=== PATIENT | female | born 1960 | race Caucasian/White ===

== ENCOUNTER 2021-01-01 08:42 | Outpatient (REF) | payer MEDICARE, MEDICAID, SELFPAY ==
[2021-01-01 09:21] LABS: MANUAL DIFF FLAG NO
[2021-01-01 09:26] LABS: Hematocrit 51.3 % (37-47); Hemoglobin 17.8 g/dl (12.0-16.0); Imm Gran Abs Auto 0.01 X10*3/uL (0.00-0.03); Imm Gran Pct Auto 0.1 % (0.0-0.4); Lymphocytes Absolute Auto 3.4 X10*3/uL (1.2-4.9); Lymphocytes Percent Auto 47.4 % (20-40); Mean Corpuscular HGB Conc 34.7 g/dl (31.0-35.0); Mean Corpuscular Hemoglobin 34.7 pg (27.0-33.0); Mean Platelet Volume 9.4 fL (9.4-12.3); Monocytes Absolute Auto 0.6 X10*3/uL (0.1-1.2); Monocytes Percent Auto 8.1 % (2-11); Neutrophils Absolute Auto 3.2 X10*3/uL (2.0-8.3); Neutrophils Percent Auto 44.4 % (45-73); Platelet Count 261 X10*3/uL (160-400); Red Blood Count 5.13 X10*6/uL (4.20-5.50); Red Cell Distribution Width 11.2 % (11.0-16.0); White Blood Count 7.2 X10*3/uL (4.8-10.8)
[2021-01-01 09:47] LABS: Alanine Aminotransferase 14 U/L (0-31); Alkaline Phosphatase 48 U/L (39-117); Anion Gap 18 (12-20); Aspartate Amino Transferase 16 U/L (5-31); Bilirubin Total 0.8 mg/dL (0.0-1.0); Blood Urea Nitrogen 10 mg/dL (9-16); Calcium 10.2 mg/dL (8.4-10.2); Carbon Dioxide 26 mmol/L (22-29); Chloride 99 mmol/L (96-108); Cholesterol 398 mg/dL; Estimated Glomerular Filt Rate > 60; Glucose Fasting 107 mg/dL (60-99); HDL Cholesterol 53 mg/dL; LDL Cholesterol Calculated 282 mg/dl; Potassium 4.9 mmol/L (3.3-5.1); Sodium 138 mmol/L (135-145); Triglycerides 319 mg/dL
[2021-01-01 10:11] LABS: Thyroid Stimulating Hormone 2.15 uIU/mL (0.32-4.0)
== END 2021-01-01 08:43 | disposition home or self-care (01) ==
LOC: HO.LAB 08:42
PROVIDERS: PCP Internal Medicine; Visit Provider Internal Medicine
DX: Z00.00 Encounter for general adult medical examination without abnormal findings (principal); E03.9 Hypothyroidism, unspecified; E11.9 Type 2 diabetes mellitus without complications
CPT/HCPCS: 36415; 80053; 80061; 84443; 85025

== ENCOUNTER 2021-03-20 14:19 | Emergency (ER) | payer MEDICARE, MEDICAID, SELFPAY ==
--- NOTE | 2021-03-20 | ECG_ITS ---
Test Reason : ELEVATED BP Blood Pressure : / mmHG Vent. Rate : 126 BPM Atrial Rate : 126 BPM P-R Int : 158 ms QRS Dur : 072 ms QT Int : 298 ms P-R-T Axes : 066 -06 064 degrees QTc Int : 431 ms Sinus tachycardia Possible Left atrial enlargement Left axis deviation Nonspecific ST abnormality Lateral leads Abnormal ECG Nonspecific ST abnormality is new Heart rate has increased Referred By: Generic ED Physician Electronically Signed By:DANUTA MAJOR MD
--- NOTE | ~2021-03-20 | CT_ITS ---
EXAMINATION: CT HEAD WITHOUT CONTRAST CLINICAL INFORMATION: Headache. COMPARISON: CT head May 04, 2013 TECHNIQUE: Contiguous axial imaging was performed from the skull base to vertex without intravenous administration of contrast. Coronal and sagittal reformatted images are performed at CT scanner This CT examination was performed using dose optimization techniques as appropriate, variously including the following: *Automated exposure control *Adjustment of mA and/or kV according to patient size (this includes techniques or standardized protocols for targeted exams where dose is matched to indication/reason for exam; i.e. extremities or head) *Use of iterative reconstruction technique DLP: 638 mGy-cm FINDINGS: Status post left frontal craniotomy. Embolization material at the right skull base causes streak artifact. There is no evidence of acute intracranial hemorrhage or territorial infarction. No abnormal mass effect or midline shift is seen. [place] to white matter differentiation is well preserved. No extra-axial fluid collections are identified. The ventricles are normal in size. There is no abnormal attenuation within the brain parenchyma. The osseous structures and soft tissues are normal. Scattered mucosal thickening in the ethmoid sinuses bilateral. The mastoid air cells and middle ear cavities are normally aerated. CT/CT head/brain wo con IMPRESSION: No acute intracranial pathology. Embolization material the right skull base causing streak artifact. Status post left frontal craniotomy.
[2021-03-20 14:31] VITALS: BP 195/108; PULSE 130; RESP 18; TEMP 37.4; BMI 27.8
[2021-03-20 17:04] VITALS: BP 191/118; PULSE 117
--- NOTE | 2021-03-20 17:04 | PC.NURSE ---
Pt has been sitting quietly in the waiting area. No new complaints. Continues to have a headache. BP reassessed with little change. Pt instructed to alert this RN if she should have any new symptoms. EKG was obtained after initial triage assessment.
[2021-03-20 17:12] VITALS: BP 194/112; PULSE 116; RESP 22; TEMP 36.5; O2SAT 95
--- NOTE | 2021-03-20 17:40 | ED.GENADULT ---
HPI - General Adult General Chief complaint: General Medical Stated complaint: hbp Time Seen by Provider: 03/20/21 17:26 Source: patient Mode of arrival: ambulatory Limitations: no limitations History of Present Illness HPI narrative: elevated BP she went to the substance abuse clinic and BP was elevated sent here for eval,no CP,no SOB ,no fever,pt states that BP has been elevated also by [facility] Onset (ago): week(s) Location: head Quality: aching Pain Consistency: intermittent Relieving factors: none Exacerbating factors: none Related Data Home Medications Medication Instructions Recorded Confirmed buprenorphine 8 mg-naloxone 2 mg 3 tab SUBLINGUAL DAILY 11/12/20 11/12/20 sublingual tablet sofosbuvir 400 mg-velpatasvir 100 1 tab PO DAILY 11/12/20 11/12/20 mg tablet Previous Rx's Medication Instructions Recorded clonazepam 0.5 mg tablet 0.5 mg PO BID #60 tab 11/02/20 clonidine HCl 0.1 mg tablet 0.1 mg PO BID #60 tab 03/12/21 amlodipine 5 mg tablet (Norvasc) 5 mg PO DAILY #10 tab 03/20/21 Allergies Allergy/AdvReac Type Severity Reaction Status Date / Time No Known Allergies Allergy Mild NOT Verified 03/20/21 14:30 APPLICABLE Review of Systems Review of Systems: Yes all other systems are reviewed and are negative Constitutional: Constitutional: Reports no additional constitutional complaints Eyes: Eyes: Reports no additional eye complaints ENT: Reports system reviewed and no additional complaints, except as documented Cardiovascular: Cardiovascular: Denies chest pain and Denies chest pain at rest Respiratory: Respiratory: Reports no additional respiratory complaints Musculoskeletal: Musculoskeletal: Reports no additional musculoskeletal complaints Psychiatric: Psychiatric: Reports no additional psychiatric complaints [facility] Past Medical History Medical History Hepatitis C Substance abuse Surgical History History of section History of fusion of cervical spine History of surgery History of umbilical hernia repair Family History Family History Father No problems noted. Mother Breast cancer Family/Other Breast cancer CAD (coronary artery disease) Dementia Social History Social History Housing: Apartment Alcohol intake: unknown Patient Tobacco Use Status: Current everyday Tobacco user Cigarettes Per Day: 10 Second Hand Smoke Exposure: No Use of substances other than those prescribed or required for medical reasons: No Advance Directives: No Advance Directives Information Provided: No Current occupational status: unemployed Physical Exam Vital Signs: Vital Signs: Last Vital Signs Temp 97.7 F 03/20/21 17:12 Pulse 100 03/20/21 18:21 Resp 20 03/20/21 18:21 BP 164/95 H 03/20/21 18:21 Pulse Ox 93 03/20/21 18:21 Body Mass Index 27.8 Const: General: cooperative Nutritional Appearance: average body habitus Orientation/consciousness: patient oriented x3 Limitations: no limitations HENMT: Head: Yes normal to inspection Face and sinus: Yes normal facial exam Mouth: Normal oral and palatal mucosa present Eyes: General: appearance normal, both eyes and all related structures Alignment and Position: alignment normal Conjunctivae: conjunctivae normal Sclerae: sclerae normal Corneas: corneas normal Pupils: Pupils normal by confrontation EOM: EOMs intact bilaterally Neck: Neck: Yes normal visual inspection, Yes full ROM and Yes no lymphadenopathy Chest: Chest palpation & inspection: normal inspection of the chest Breast/axilla palpation: normal palpation of the breasts Resp: Effort & Inspection: normal respiratory effort and able to speak in complete sentences Auscultation: clear to auscultation bilaterally Cardio: Jugular venous distension: no JVD Rate: regular rate Rhythm: regular rhythm Heart sounds: S1 normal heart sound present and S2 normal heart sound present GI: Inspection: Yes normal to inspection Palpation (GI): Soft to palpation, not firm, nontender and no guarding Percussion: Yes normal to percussion : General: Yes no CVA tenderness Back/Spine/Pelvis: Back: no CVA tenderness Neuro: General: patient oriented x3 Course Course Course Narrative: she is feeling better,BP better I will start her on norvasc 5 mg daily ,I will give her #10 pill till she see PCP Medical Decision Making Imaging Data CT scan - head: Radiologist's impression: HEAD CT NO ACUTE DISEASE ECG Data Attestation: I personally reviewed and interpreted this ECG as follows: Pacemaker model: Sinus tach 126 no ischemic changes Discharge Plan Discharge Clinical Impression: Hypertension, uncontrolled Patient Disposition: Home, Self-Care Instructions: Hypertension (ED) Additional Instructions: we are starting you on norvasc 5 mg for hypertension will give you 10 days supply till you see your PCP Prescriptions: New amlodipine [Norvasc] 5 mg tablet 5 mg PO DAILY Qty: 10 RF: 0 No Action clonazepam 0.5 mg tablet 0.5 mg PO BID Qty: 60 RF: 5 clonidine HCl 0.1 mg tablet 0.1 mg PO BID Qty: 60 RF: 3 buprenorphine-naloxone 8-2 mg tablet, sublingual 3 tab sublingual DAILY RF: 0 sofosbuvir-velpatasvir 400-100 mg tablet 1 tab PO DAILY RF: 0 Referrals: Winston Harrison MD [Primary Care Provider] - 2 days
[2021-03-20 17:44] VITALS: BP 154/86; PULSE 103; RESP 18; O2SAT 92
[2021-03-20] MEDS: LORazepam 1 MG TABLET PO (17:45)
[2021-03-20] MEDS: amLODIPine Besylate 5 MG TABLET PO (17:45)
[2021-03-20 18:21] VITALS: BP 164/95; PULSE 100; RESP 20; O2SAT 93
== END 2021-03-20 19:02 | disposition home or self-care (01) ==
PROVIDERS: Emergency Provider Emergency Medicine; PCP Internal Medicine
DX: I10 Essential (primary) hypertension (principal)
CPT/HCPCS: 70450; 93005; 99284

== ENCOUNTER 2022-01-07 10:34 | Outpatient (REF) | payer MEDICARE, MEDICAID, SELFPAY ==
--- NOTE | ~2022-01-07 | XR_ITS ---
EXAMINATION: XR RIBS, LEFT CLINICAL INFORMATION: Contusion of left frontal wall COMPARISON: None TECHNIQUE: 3 views of the left ribs were obtained. FINDINGS: The lungs are and expanded and clear of acute pneumonic process. There is mild left apical pleural thickening. The heart size and pulmonary vascularity is normal. Multiple views of left ribs reveal no visible acute fracture or bony abnormality. The soft tissues are normal. XR/XR ribs LT min 3V w CXR1V IMPRESSION: Unremarkable chest and left rib exam.
== END 2022-01-07 10:35 | disposition home or self-care (01) ==
LOC: HO.XRAY 10:34
PROVIDERS: Absent Provider Internal Medicine; PCP Internal Medicine; Visit Provider Internal Medicine
DX: S20.219A Contusion of unspecified front wall of thorax, initial encounter (principal); X58.XXXA Exposure to other specified factors, initial encounter; Y93.9 Activity, unspecified; Y92.9 Unspecified place or not applicable; Y99.9 Unspecified external cause status
CPT/HCPCS: 71101

== ENCOUNTER 2022-09-06 15:22 | Emergency (ER) | payer MEDICARE, MEDICAID, SELFPAY ==
--- NOTE | ~2022-09-06 | CT_ITS ---
EXAMINATION: CT HEAD WITHOUT CONTRAST CLINICAL INFORMATION: Headache, numbness, tingling COMPARISON: 03/20/2021 TECHNIQUE: Contiguous axial imaging was performed from the skull base to vertex without intravenous administration of contrast. This CT examination was performed using dose optimization techniques as appropriate, variously including the following: *Automated exposure control *Adjustment of mA and/or kV according to patient size (this includes techniques or standardized protocols for targeted exams where dose is matched to indication/reason for exam; i.e. extremities or head) *Use of iterative reconstruction technique DLP: 612 mGy-cm FINDINGS: There is no midline shift. There is no mass effect. There is no hemorrhage. Artifact created by hardware in the right sphenoid region limits evaluation in the region. The visualized fountain-white matter is comparable to previous. There is no evidence for fracture on the bone windows. Partially visualized sinuses show some mild sinus disease in the ethmoids. CT/CT head/brain wo IV con IMPRESSION: Negative acute noncontrast CT the brain with some limitation from hardware creating artifact.
--- NOTE | ~2022-09-06 | XR_ITS ---
EXAMINATION: XR CHEST CLINICAL INFORMATION: hypertension, numbness, tingling, pain COMPARISON: Chest x-ray 09/10/2014 TECHNIQUE: 2 views of the chest were obtained. FINDINGS: Lung volume low causing mild prominence of bronchovascular markings. No focal consolidation. No pleural effusion or pneumothorax. Cardiac mediastinal contours are normal. Heart size normal. Orthopedic hardware in cervical spine. XR/XR chest 2V IMPRESSION: Low lung volume. No acute abnormality of the chest.
[2022-09-06 15:27] VITALS: BP 172/96; BP 196/98; PULSE 102; PULSE 104; RESP 16; TEMP 37.2; O2SAT 93; BMI 30.4
[2022-09-06 15:30] VITALS: RESP 20
--- NOTE | 2022-09-06 15:54 | ECG_ITS ---
Test Reason : PALPITATIONS Blood Pressure : / mmHG Vent. Rate : 098 BPM Atrial Rate : 098 BPM P-R Int : 174 ms QRS Dur : 076 ms QT Int : 364 ms P-R-T Axes : 062 -02 028 degrees QTc Int : 464 ms Normal sinus rhythm Possible Left atrial enlargement Borderline ECG When compared with ECG of 20-MAR-2021 14:47, No significant change was found Referred By: Paulina Whitley Electronically Signed By:GEMA ENCARNACION MD
--- NOTE | 2022-09-06 15:54 | ED.GENADULT ---
HPI - General Adult General Chief complaint: General Medical Stated complaint: hypertension Time Seen by Provider: 09/06/22 15:53 Source: patient and EMS Mode of arrival: EMS Limitations: no limitations History of Present Illness HPI narrative: Patient is a 62 year old assigned female at with a history of HTN and COPD presenting to the emergency department today with neck pain that radiates into her extremities. Patient states that her neck has been bothering her some and it radiates into her head and her extremities. Patient states that the pain is worse with movement. Patient denies any dizziness, lightheadedness, abdominal pain, nausea, vomiting, fever, chills, blurry vision, double vision, loss of vision, chest pain, difficulty breathing, shortness of breath, back pain, night sweats, pain with urination, increased urinary frequency, increased urinary urgency, blood in her urine or stool, syncope or a near syncopal episode, recent trauma or falls, bowel incontinence, bladder incontinence, bowel retention, bladder retention, or any other complaints at this time. Onset (ago): day(s) (4) Location: neck Severity: mild Severity scale (1-10): 3 Quality: aching and dull Pain Consistency: intermittent Relieving factors: none Exacerbating factors: movement Associated symptoms: denies other symptoms Treatments prior to arrival: none Related Data Home Medications Medication Instructions Recorded Confirmed buprenorphine 8 mg-naloxone 2 mg 3 tab sublingual DAILY 11/12/20 06/19/21 sublingual tablet Previous Rx's Medication Instructions Recorded blood pressure monitor #1 ea 04/15/21 hydroxyzine HCl 10 mg tablet 10 mg PO BID 10 days #20 tabs 04/17/21 clonidine HCl 0.1 mg tablet 0.1 mg PO BID #60 tabs 11/28/21 meloxicam 15 mg tablet 15 mg PO DAILY #14 tabs 01/25/22 clonazepam 0.5 mg tablet 0.5 mg PO BID #60 tabs 03/24/22 amlodipine 5 mg tablet (Norvasc) 5 mg PO DAILY #90 tabs 06/23/22 atorvastatin 20 mg tablet 20 mg PO DAILY #90 tabs 07/13/22 cyclobenzaprine 5 mg tablet 5 mg PO TID PRN muscle spasm 7 09/06/22 days #21 tabs Allergies Allergy/AdvReac Type Severity Reaction Status Date / Time No Known Allergies Allergy Mild NOT Verified 01/07/22 09:58 APPLICABLE Review of Systems Constitutional: Constitutional: Reports no additional constitutional complaints, Denies chills, Denies fever(s) and Denies night sweats Eyes: Eyes: Reports no additional eye complaints, Denies blurry vision, Denies change in vision, Denies diplopia, Denies eye discharge, Denies loss of vision and Denies eye pain ENT: Denies dizziness and Reports neck pain Cardiovascular: Cardiovascular: Reports no additional cardiovascular complaints, Denies chest pain, Denies lightheadedness, Denies Loss of Consciousness and Denies dyspnea Respiratory: Respiratory: Reports no additional respiratory complaints and Denies dyspnea Gastrointestinal: Gastrointestinal: Reports no additional gastrointestinal complaints, Denies abdominal pain, Denies melena, Denies hematochezia, Denies change in bowel habits and Denies change in stool character Genitourinary: Genitourinary: Denies hematuria, Denies urinary frequency, Denies dysuria, Denies urinary incontinence, Denies urinary hesitancy and Denies urinary urgency Musculoskeletal: Musculoskeletal: Reports no additional musculoskeletal complaints, Reports neck pain, Denies numbness and Denies tingling Neurologic: Denies dizziness, Denies loss of vision, Denies numbness and Denies tingling Psychiatric: Psychiatric: Reports no additional psychiatric complaints Endocrine: Endocrine: Reports no additional endocrine complaints Hematologic/Lymphatic: Hematologic/Lymphatic: Reports no additional hematologic/lymphatic complaints Allergic/Immunologic: Allergic/Immunologic: Reports no additional allergic/immunologic complaints [facility] Past Medical History Attestation statement: The following information was validated with the patient. Source: old records reviewed and nursing notes reviewed Medical History Hepatitis C Hyperlipidemia Hypertension Substance abuse Surgical History History of section History of fusion of cervical spine History of surgery History of umbilical hernia repair Family History Family History Father No problems noted. Mother Breast cancer Family/Other Breast cancer CAD (coronary artery disease) Dementia Mental health disorder Social History Social History Housing: Apartment Alcohol intake: never Patient Tobacco Use Status: Current everyday Tobacco user Tobacco use type: Cigarette Cigarettes Per Day: 10 Smoked in Last 30 Days: Yes e-Cigarette/Vaping Use: Never Used Second Hand Smoke Exposure: No Use of substances other than those prescribed or required for medical reasons: No Advance Directives: No Advance Directives Information Provided: No service: No Current occupational status: unemployed Cognitive needs: No Hearing needs: No Vision needs: No Physical Exam ED Vital Signs: Vital Signs - 24 hr 09/06/22 15:27 09/06/22 15:30 09/06/22 18:09 Temperature 99.0 F Pulse Rate 104 H 95 Respiratory Rate 16 20 16 Blood Pressure 172/96 H 130/78 Pulse Oximetry 93 96 Oxygen Delivery Method Room Air Nasal Cannula Oxygen Flow Rate 2 BMI result Body Mass Index 30.4 Const General: cooperative, no acute distress, alert and awake Nutritional Appearance: well nourished Orientation/consciousness: patient oriented x3 Limitations: no limitations HENMT Head: Yes normal to inspection and Yes atraumatic Ears: hearing grossly normal bilaterally and external ears normal General nose exam: Normal external nose present, no nasal discharge noted and no epistaxis Face and sinus: Yes normal facial exam, No abrasion and No laceration Mouth: Normal oral and palatal mucosa present, no drooling and no muffled voice Eyes General: appearance normal, both eyes and all related structures Periorbital: periorbital findings normal Eyelids: Yes eyelids normal Conjunctivae: conjunctivae normal Pupils: Equal, round and reactive pupils present EOM: EOMs intact bilaterally Neck Neck: Yes normal visual inspection, Yes full ROM and Yes no lymphadenopathy Chest Chest palpation & inspection: normal inspection of the chest Resp Effort & Inspection: normal respiratory effort and able to speak in complete sentences GI Inspection: Yes normal to inspection General: Yes no CVA tenderness Back/Spine/Pelvis Back: no CVA tenderness Cervical Spine: normal cervical lordosis and cervical ROM normal Thoracic/Lumbar Spine: thoracic and lumbar spine normal to inspection and thoraco-lumbar ROM normal Pelvis: no pain with anterior-posterior compression Neuro General: patient oriented x3 and moves all extremities Cranial nerves: Yes Equal, round and reactive pupils present Cognition (Neuro): normal cognition Motor exam (neuro): 5/5 motor strength present throughout Sensory Exam: Normal double simultaneous stimulation for sensation Coordination: [id number] test normal Extrem General: Yes normal to inspection, Yes full ROM and Yes capillary refill normal Psych Appearance: grossly normal Mental Status: mental status grossly normal Affect: normal affect Attitude: cooperative Thought process: Normal thought process present Thought content: Normal thought content present Insight: Good insight present (Psych) Medications Administered Discontinued Medications Generic Name Dose Route Start Last Admin Trade Name Sandra PRN Reason Stop Dose Admin Cyclobenzaprine HCl 5 mg 09/06/22 18:05 09/06/22 18:17 Cyclobenzaprine Hcl 5 Mg Tablet PO 09/06/22 18:06 5 mg ONCE ONE Administration Sodium Chloride 1,000 mls @ 999 mls/hr 09/06/22 16:00 09/06/22 19:01 Ns IV 09/06/22 17:00 Infused .Q1H1M SUBHASH Infusion Lorazepam 1 mg 09/06/22 15:58 09/06/22 16:38 Lorazepam 2 Mg/Ml Vial IVPUSH 09/06/22 15:59 1 mg ONCE ONE Administration Medical Decision Making Medical Decision Making [facility] Narrative: Patient is a 62 year old assigned female at with a history of COPD and HTN presenting to the emergency department today with neck pain. Patient's physical exam was unremarkable. Patient's blood work was unremarkable. Patient's EKG was unremarkable. Patient's chest x-ray and head CT showed no acute process. I explained my physical exam findings as well as all test results to the patient. I answered all questions asked by the patient. Patient requested something for anxiety, received ativan and felt much better. I stressed the importance of the patient taking her medication as prescribed. I stressed the importance of the patient following up with her primary care provider. I stressed the importance of the patient returning to the emergency department immediately if her symptoms were to worsen or if she were to develop any dizziness, shortness of breath, difficulty breathing, chest pain, blurry vision, loss of vision, nausea, vomiting, abdominal pain, fever, chills, back pain, or any other complaints. Patient verbalized agreement and understanding with this treatment plan and discharge. Differential Diagnosis Differential Diagnoses: The differential diagnosis associated with the presentation includes neck pain, anxiety Lab Data [facility] Lab Attestation statement: I reviewed the patient's lab results. 09/06/22 16:23 09/06/22 16:37 Labs: Lab Results 09/06/22 09/06/22 09/06/22 Range/Units 16:23 16:23 16:23 WBC 6.4 (4.8-10.8) X10*3/uL RBC 5.22 (4.20-5.50) X10*6/uL Hgb 17.6 H (12.0-16.0) g/dl Hct 50.6 H (37.0-47.0) % MCV 96.9 (80.0-98.0) fL MCH 33.7 H (27.0-33.0) pg MCHC 34.8 (31.0-35.0) g/dl RDW 11.2 (11.0-16.0) % Plt Count TNP MPV 10.5 (9.4-12.3) fL Immature Gran % (Auto) 0.2 (0.0-0.4) % Neut % (Auto) 55.2 (45-73) % Lymph % (Auto) 38.1 (20-40) % Hudson % (Auto) 6.3 (2-11) % Eos % (Auto) 0.2 (0-4) % Baso % (Auto) 0.0 (0-2) % Lymph # (Auto) 2.4 (1.2-4.9) X10*3/uL Hudson # (Auto) 0.4 (0.1-1.2) X10*3/uL Eos # (Auto) 0.0 (0.0-0.4) X10*3/uL Baso # (Auto) 0.0 (0.0-0.2) X10*3/uL Abs Immat Gran (auto) 0.01 (0.00-0.03) X10*3/uL Absolute Neuts (auto) 3.5 (2.0-8.3) x10*3/uL Absolute Nucleated RBC 0.000 (0.0-0.012) X10*3/uL Nucleated RBC % (auto) 0.0 (0.0-0.2) /100WBC Smear Tech's Comments VERIFIED Sodium (135-145) mmol/L Potassium (3.3-5.1) mmol/L Chloride (96-108) mmol/L Carbon Dioxide (22-29) mmol/L Anion Gap (12-20) BUN (9-16) mg/dL Creatinine (0.5-1.4) mg/dL Estim Creat Clear Calc Estimated GFR Random Glucose (60-115) mg/dL Calcium (8.4-10.2) mg/dL Magnesium (1.6-2.6) mg/dL Total Bilirubin (0.0-1.0) mg/dL AST (5-31) U/L ALT (0-31) U/L Alkaline Phosphatase (39-117) U/L Troponin I High Sens < 2.7 (<3.5-17.0) ng/L Total Protein (6.5-8.0) g/dL Albumin (3.5-5.0) g/dL COVID-19 ([facility]) Negative (Negative) COVID-19 Clin Com See Note 09/06/22 Range/Units 16:37 WBC (4.8-10.8) X10*3/uL RBC (4.20-5.50) X10*6/uL Hgb (12.0-16.0) g/dl Hct (37.0-47.0) % MCV (80.0-98.0) fL MCH (27.0-33.0) pg MCHC (31.0-35.0) g/dl RDW (11.0-16.0) % Plt Count MPV (9.4-12.3) fL Immature Gran % (Auto) (0.0-0.4) % Neut % (Auto) (45-73) % Lymph % (Auto) (20-40) % Hudson % (Auto) (2-11) % Eos % (Auto) (0-4) % Baso % (Auto) (0-2) % Lymph # (Auto) (1.2-4.9) X10*3/uL Hudson # (Auto) (0.1-1.2) X10*3/uL Eos # (Auto) (0.0-0.4) X10*3/uL Baso # (Auto) (0.0-0.2) X10*3/uL Abs Immat Gran (auto) (0.00-0.03) X10*3/uL Absolute Neuts (auto) (2.0-8.3) x10*3/uL Absolute Nucleated RBC (0.0-0.012) X10*3/uL Nucleated RBC % (auto) (0.0-0.2) /100WBC Smear Tech's Comments Sodium 139 (135-145) mmol/L Potassium 3.8 D (3.3-5.1) mmol/L Chloride 103 (96-108) mmol/L Carbon Dioxide 21 L (22-29) mmol/L Anion Gap 19 (12-20) BUN 9 (9-16) mg/dL Creatinine 0.75 (0.5-1.4) mg/dL Estim Creat Clear Calc 81.9 Estimated GFR > 60 Random Glucose 104 (60-115) mg/dL Calcium 9.4 D (8.4-10.2) mg/dL Magnesium 2.1 (1.6-2.6) mg/dL Total Bilirubin 0.6 (0.0-1.0) mg/dL AST 18 (5-31) U/L ALT 15 (0-31) U/L Alkaline Phosphatase 55 (39-117) U/L Troponin I High Sens (<3.5-17.0) ng/L Total Protein 7.9 (6.5-8.0) g/dL Albumin 4.8 (3.5-5.0) g/dL COVID-19 ([facility]) (Negative) COVID-19 Clin Com Independent Interpretation I performed an independent interpretation of an: EKG Interpretation: Vent. Rate: 098 BPM ? ? Atrial Rate: 098 BPM P-R Int: 174 ms? QRS Dur: 076 ms QT Int: 364 ms ? ? ? P-R-T Axes: 062 -02 028 degrees QTc Int: 464 ms ? Normal sinus rhythm Possible Left atrial enlargement Borderline ECG When compared with ECG of 20-MAR-2021 14:47, No significant change was found DD/ 1603 Radiology Impression Radiologist Impression: My interpretation is in agreement with the radiologist's impression of these imaging studies. EXAMINATION: XR CHEST CLINICAL INFORMATION: hypertension, numbness, tingling, pain COMPARISON: Chest x-ray 09/10/2014 TECHNIQUE: 2 views of the chest were obtained. FINDINGS: Lung volume low causing mild prominence of bronchovascular markings. No focal consolidation. No pleural effusion or pneumothorax. Cardiac mediastinal contours are normal. Heart size normal. Orthopedic hardware in cervical spine. XR/XR chest 2V IMPRESSION: Low lung volume. No acute abnormality of the chest. Dictated By: Jose Luis Nguyễn MD Signed By: Electronically signed by Jose Luis Nguyễn MD 09/06/22 1744 EXAMINATION: CT HEAD WITHOUT CONTRAST CLINICAL INFORMATION: Headache, numbness, tingling? COMPARISON: 03/20/2021? TECHNIQUE: Contiguous axial imaging was performed from the skull base to vertex without intravenous administration of contrast. This CT examination was performed using dose optimization techniques as appropriate, variously including the following: *Automated exposure control *Adjustment of mA and/or kV according to patient size (this includes techniques or standardized protocols for targeted exams where dose is matched to indication/reason for exam; i.e. extremities or head) *Use of iterative reconstruction technique DLP: 612 mGy-cm FINDINGS: There is no midline shift. There is no mass effect. There is no hemorrhage. Artifact created by hardware in the right sphenoid region limits evaluation in the region. The visualized fountain-white matter is comparable to previous. There is no evidence for fracture on the bone windows. Partially visualized sinuses show some mild sinus disease in the ethmoids. CT/CT head/brain wo IV con IMPRESSION: Negative acute noncontrast CT the brain with some limitation from hardware creating artifact. Dictated By: Santos Diggs MD Signed By: Electronically signed by Santos Diggs MD 09/06/22 2441 Discharge Plan Discharge Clinical Impression: Muscle spasm Patient Disposition: Home, Self-Care Instructions: Muscle Spasm (ED) Additional Instructions: Follow up with your primary care provider. Return to the emergency department immediately if your symptoms worsen or if you develop any dizziness, shortness of breath, difficulty breathing, chest pain, blurry vision, loss of vision, nausea, vomiting, abdominal pain, fever, chills, back pain, or any other complaints. Prescriptions: New cyclobenzaprine 5 mg tablet 5 mg PO TID PRN (Reason: muscle spasm) 7 Days Qty: 21 0RF No Action (DME) blood pressure monitor Kit See Rx Instructions .Route Qty: 1 0RF Rx Instructions: To check blood pressure daily hydroxyzine HCl 10 mg tablet 10 mg PO BID 10 Days Qty: 20 0RF clonidine HCl 0.1 mg tablet 0.1 mg PO BID Qty: 60 7RF meloxicam 15 mg tablet 15 mg PO DAILY Qty: 14 0RF clonazepam 0.5 mg tablet 0.5 mg PO BID Qty: 60 5RF amlodipine [Norvasc] 5 mg tablet 5 mg PO DAILY Qty: 90 8RF atorvastatin 20 mg tablet 20 mg PO DAILY Qty: 90 2RF buprenorphine-naloxone 8-2 mg tablet, sublingual 3 tab sublingual DAILY Referrals: [facility] Family Medicine [Provider Group] (Call to establish and follow up with a primary care provider. If you already have a primary care provider, please follow up with them.) [facility] Primary [facility] [Provider Group] (Call to establish and follow up with a primary care provider. If you already have a primary care provider, please follow up with them.) [facility] Primary [facility] [Provider Group] (Call to establish and follow up with a primary care provider. If you already have a primary care provider, please follow up with them.) Interventions: ED Discharge Assessment Last Done: 09/06/22 18:59 Discharge Date/Time: 09/06/22 19:00 Print Language: Korean
[2022-09-06 16:34] LABS: Eosinophils Percent Auto 0.2 % (0-4); Hematocrit 50.6 % (37.0-47.0); Hemoglobin 17.6 g/dl (12.0-16.0); Imm Gran Abs Auto 0.01 X10*3/uL (0.00-0.03); Imm Gran Pct Auto 0.2 % (0.0-0.4); Lymphocytes Absolute Auto 2.4 X10*3/uL (1.2-4.9); Lymphocytes Percent Auto 38.1 % (20-40); MANUAL DIFF FLAG SCAN; Mean Corpuscular HGB Conc 34.8 g/dl (31.0-35.0); Mean Corpuscular Hemoglobin 33.7 pg (27.0-33.0); Mean Corpuscular Volume 96.9 fL (80.0-98.0); Mean Platelet Volume 10.5 fL (9.4-12.3); Monocytes Absolute Auto 0.4 X10*3/uL (0.1-1.2); Monocytes Percent Auto 6.3 % (2-11); Neutrophils Absolute Auto 3.5 x10*3/uL (2.0-8.3); Neutrophils Percent Auto 55.2 % (45-73); PLT CLUMP 1; Red Blood Count 5.22 X10*6/uL (4.20-5.50); Red Cell Distribution Width 11.2 % (11.0-16.0); SCAN SMEAR FLAG 1
[2022-09-06 16:35] LABS: White Blood Count 6.4 X10*3/uL (4.8-10.8)
[2022-09-06] MEDS: LORazepam 2 MG/ML VIAL 1 MG IVPUSH (16:38)
[2022-09-06] MEDS: 0.9 % Sodium Chloride 1,000 ML 999 ML IV (16:41)
[2022-09-06 16:48] LABS: COVID-19 Test Negative (Negative); IDNOW Serial# 08D9AD1C
[2022-09-06 16:50] LABS: SLIDE REVIEW VERIFIED
[2022-09-06 16:51] LABS: Troponin-I High Sensitivity < 2.7 ng/L (<3.5-17.0)
[2022-09-06 16:59] LABS: Alanine Aminotransferase 15 U/L (0-31); Albumin Level 4.8 g/dL (3.5-5.0); Alkaline Phosphatase 55 U/L (39-117); Anion Gap 19 (12-20); Aspartate Amino Transferase 18 U/L (5-31); Bilirubin Total 0.6 mg/dL (0.0-1.0); Blood Urea Nitrogen 9 mg/dL (9-16); Calcium 9.4 mg/dL (8.4-10.2); Carbon Dioxide 21 mmol/L (22-29); Chloride 103 mmol/L (96-108); Creatinine Clr Calc Pharmacy 81.9; Estimated Glomerular Filt Rate > 60; Glucose Random 104 mg/dL (60-115); Magnesium 2.1 mg/dL (1.6-2.6); Potassium 3.8 mmol/L (3.3-5.1); Sodium 139 mmol/L (135-145); Total Protein 7.9 g/dL (6.5-8.0)
[2022-09-06 18:09] VITALS: BP 130/78; PULSE 95; RESP 16; O2SAT 96
[2022-09-06] MEDS: Cyclobenzaprine HCl 5 MG TABLET PO (18:17)
== END 2022-09-06 19:00 | disposition home or self-care (01) ==
PROVIDERS: Physician Assistant Medical; Emergency Provider Emergency Medicine
DX: M62.838 Other muscle spasm (principal); M54.2 Cervicalgia; F41.9 Anxiety disorder, unspecified; Z20.822 Contact with and (suspected) exposure to COVID-19; I10 Essential (primary) hypertension; E78.5 Hyperlipidemia, unspecified; B19.20 Unspecified viral hepatitis C without hepatic coma; F11.20 Opioid dependence, uncomplicated; F17.210 Nicotine dependence, cigarettes, uncomplicated; Z79.899 Other long term (current) drug therapy
CPT/HCPCS: 70450; 71046; 80053; 83735; 84484; 85025; 87635; 93005; 96361; 96374; 99284; 99285; J2060

== ENCOUNTER 2022-10-03 09:50 | Emergency (ER) | payer MEDICARE, MEDICAID, SELFPAY ==
[2022-10-03 09:55] VITALS: BP 163/93; PULSE 100; O2SAT 95
--- NOTE | 2022-10-03 09:55 | ED_ITS ---
HPI - General Adult General Chief complaint: Anxiety Stated complaint: HTN,palpitations per EMS Time Seen by Provider: 10/03/22 09:52 Source: patient Mode of arrival: ambulatory Limitations: no limitations History of Present Illness HPI narrative: Patient felt palpitation that made her panic and so she thought her pressure was running high. Patient took her BP meds this morning. Patient does have a history of panic attacks Onset (ago): minute(s) Severity: mild Pain Consistency: now resolved Related Data Home Medications Medication Instructions Recorded Confirmed buprenorphine 8 mg-naloxone 2 mg 3 tab sublingual DAILY 11/12/20 09/12/22 sublingual tablet Previous Rx's Medication Instructions Recorded blood pressure monitor #1 ea 04/15/21 hydroxyzine HCl 10 mg tablet 10 mg PO BID 10 days #20 tabs 04/17/21 meloxicam 15 mg tablet 15 mg PO DAILY #14 tabs 01/25/22 amlodipine 5 mg tablet (Norvasc) 5 mg PO DAILY #90 tabs 06/23/22 atorvastatin 20 mg tablet 20 mg PO DAILY #90 tabs 07/13/22 cyclobenzaprine 5 mg tablet 5 mg PO TID PRN muscle spasm 7 09/06/22 days #21 tabs clonazepam 0.5 mg tablet 0.5 mg PO BID #60 tabs 09/09/22 clonidine HCl 0.1 mg tablet 0.1 mg PO BID #60 tabs 09/09/22 albuterol sulfate 90 mcg/actuation 2 puff PO Q6H PRN bronchospasm #18 09/12/22 aerosol inhaler (ProAir HFA) grams Allergies Allergy/AdvReac Type Severity Reaction Status Date / Time No Known Allergies Allergy Mild NOT Verified 09/12/22 11:41 APPLICABLE Review of Systems Review of Systems: Yes all other systems are reviewed and are negative Cardiovascular: Comments: palpitations Psychiatric: Comments: anxiety PMFSH Past Medical History Medical History Hepatitis C Hyperlipidemia Hypertension Substance abuse Surgical History History of section History of fusion of cervical spine History of surgery History of umbilical hernia repair Family History Family History Father No problems noted. Mother Breast cancer Family/Other Breast cancer CAD (coronary artery disease) Dementia Mental health disorder Social History Social History Housing: Apartment Alcohol intake: never Patient Tobacco Use Status: Current everyday Tobacco user Tobacco use type: Cigarette Cigarettes Per Day: 10 e-Cigarette/Vaping Use: Never Used Second Hand Smoke Exposure: No Advance Directives: No service: No Current occupational status: unemployed Cognitive needs: No Hearing needs: No Vision needs: No Physical Exam ED Vital Signs: Vital Signs - 24 hr 10/03/22 09:56 Temperature 99.2 F Pulse Rate 94 Respiratory Rate 18 Blood Pressure 146/76 H Pulse Oximetry 92 Oxygen Delivery Method Room Air BMI result Body Mass Index 31.2 Const Other: female looking older than stated age, anxious Orientation/consciousness: oriented to person and patient oriented x3 Limitations: no limitations HENMT Head: Yes normal to inspection Ears: external ears normal General nose exam: Normal external nose present Mouth: Normal oral and palatal mucosa present and oropharynx normal Throat: Yes posterior oropharynx normal Eyes General: appearance normal, both eyes and all related structures Neck Neck: Yes normal visual inspection Chest Chest palpation & inspection: normal inspection of the chest Resp Auscultation: clear to auscultation bilaterally Cardio Jugular venous distension: no JVD Rate: regular rate Rhythm: regular rhythm Heart sounds: S1 normal heart sound present and S2 normal heart sound present GI Inspection: Yes normal to inspection Palpation (GI): Soft to palpation, nontender and No hepatosplenomegaly present Auscultation: normal bowel sounds General: Yes no CVA tenderness Back/Spine/Pelvis Back: no CVA tenderness Skin General skin exam: no rashes or lesions noted Neuro General: oriented to person and patient oriented x3 Cranial nerves: Yes CN's II-XII intact bilaterally Motor exam (neuro): 5/5 motor strength present throughout Extrem General: Yes normal to inspection Psych Other: anxious Course Reevaluation(s) Reevaluation #1: EKG blood work, and BP down, patient less anxious after ativan ready for dc home Time: 11:08 Medications Administered Discontinued Medications Generic Name Dose Route Start Last Admin Trade Name Freq PRN Reason Stop Dose Admin Lorazepam 1 mg 10/03/22 10:00 10/03/22 10:10 Lorazepam 2 Mg/Ml Vial IVPUSH 10/03/22 10:01 1 mg STAT STA Administration Medical Decision Making Differential Diagnosis Differential Diagnoses: The differential diagnosis associated with the presentation includes (cardiac ischemia, anxiety, unstable angina) Admission/Observation Consideration of admission/observation: Escalation of care including admission/observation considered (In a 62 yo female, smoker with strong family history admission was considered upon arrival) Lab Data MDM Lab Attestation statement: I reviewed the patient's lab results. 10/03/22 10:07 10/03/22 10:07 Labs: Lab Results 10/03/22 10/03/22 Range/Units 10:07 10:07 WBC 5.8 (4.8-10.8) X10*3/uL RBC 4.91 (4.20-5.50) X10*6/uL Hgb 16.2 H (12.0-16.0) g/dl Hct 45.9 (37.0-47.0) % MCV 93.5 (80.0-98.0) fL MCH 33.0 (27.0-33.0) pg MCHC 35.3 H (31.0-35.0) g/dl RDW 11.1 (11.0-16.0) % Plt Count 221 (160-400) X10*3/uL MPV 9.4 (9.4-12.3) fL Immature Gran % (Auto) 0.2 (0.0-0.4) % Neut % (Auto) 67.7 (45-73) % Lymph % (Auto) 26.3 (20-40) % [place] % (Auto) 5.8 (2-11) % Eos % (Auto) 0.0 (0-4) % Baso % (Auto) 0.0 (0-2) % Lymph # (Auto) 1.5 (1.2-4.9) X10*3/uL [place] # (Auto) 0.3 (0.1-1.2) X10*3/uL Eos # (Auto) 0.0 (0.0-0.4) X10*3/uL Baso # (Auto) 0.0 (0.0-0.2) X10*3/uL Abs Immat Gran (auto) 0.01 (0.00-0.03) X10*3/uL Absolute Neuts (auto) 3.9 (2.0-8.3) x10*3/uL Absolute Nucleated RBC 0.000 (0.0-0.012) X10*3/uL Nucleated RBC % (auto) 0.0 (0.0-0.2) /100WBC Troponin I High Sens < 2.7 (<3.5-17.0) ng/L Independent Interpretation I performed an independent interpretation of an: EKG (sinus, rate of 90, no st or twave changes) Independent Historian Clinical information obtained from an independent historian. History obtained from or confirmed by: EMS Chronic Conditions Patient?s care impacted by: Hypertension and Other (COPD) Discharge Plan Discharge Clinical Impression: Acute anxiety, Chest pain Patient Disposition: Home, Self-Care Instructions: Anxiety (ED) Prescriptions: No Action (DME) blood pressure monitor Kit See Rx Instructions .Route Qty: 1 0RF Rx Instructions: To check blood pressure daily hydroxyzine HCl 10 mg tablet 10 mg PO BID 10 Days Qty: 20 0RF meloxicam 15 mg tablet 15 mg PO DAILY Qty: 14 0RF amlodipine [Norvasc] 5 mg tablet 5 mg PO DAILY Qty: 90 8RF atorvastatin 20 mg tablet 20 mg PO DAILY Qty: 90 2RF clonazepam 0.5 mg tablet 0.5 mg PO BID Qty: 60 5RF clonidine HCl 0.1 mg tablet 0.1 mg PO BID Qty: 60 7RF cyclobenzaprine 5 mg tablet 5 mg PO TID PRN (Reason: muscle spasm) 7 Days Qty: 21 0RF buprenorphine-naloxone 8-2 mg tablet, sublingual 3 tab sublingual DAILY albuterol sulfate [ProAir HFA] 90 mcg/actuation HFA aerosol inhaler 2 puff PO Q6H PRN (Reason: bronchospasm) Qty: 18 8RF
[2022-10-03 09:56] VITALS: BP 146/76; PULSE 94; RESP 18; TEMP 37.3; O2SAT 92; BMI 31.2
--- NOTE | 2022-10-03 09:57 | ECG_ITS ---
Test Reason : ANXITEY Blood Pressure : / mmHG Vent. Rate : 092 BPM Atrial Rate : 092 BPM P-R Int : 180 ms QRS Dur : 074 ms QT Int : 386 ms P-R-T Axes : 063 002 035 degrees QTc Int : 477 ms Normal sinus rhythm Possible Left atrial enlargement Borderline ECG When compared with ECG of 06-SEP-2022 16:03, No significant change was found Referred By: Christopher Rojas Electronically Signed By:MIC LAYNE
[2022-10-03] MEDS: LORazepam 2 MG/ML VIAL 1 MG IVPUSH (10:10)
[2022-10-03 10:11] LABS: MANUAL DIFF FLAG NO
[2022-10-03 10:20] LABS: Hematocrit 45.9 % (37.0-47.0); Hemoglobin 16.2 g/dl (12.0-16.0); Imm Gran Abs Auto 0.01 X10*3/uL (0.00-0.03); Imm Gran Pct Auto 0.2 % (0.0-0.4); Lymphocytes Absolute Auto 1.5 X10*3/uL (1.2-4.9); Lymphocytes Percent Auto 26.3 % (20-40); Mean Corpuscular HGB Conc 35.3 g/dl (31.0-35.0); Mean Corpuscular Volume 93.5 fL (80.0-98.0); Mean Platelet Volume 9.4 fL (9.4-12.3); Monocytes Absolute Auto 0.3 X10*3/uL (0.1-1.2); Monocytes Percent Auto 5.8 % (2-11); Neutrophils Absolute Auto 3.9 x10*3/uL (2.0-8.3); Neutrophils Percent Auto 67.7 % (45-73); Platelet Count 221 X10*3/uL (160-400); Red Blood Count 4.91 X10*6/uL (4.20-5.50); Red Cell Distribution Width 11.1 % (11.0-16.0); White Blood Count 5.8 X10*3/uL (4.8-10.8)
[2022-10-03 10:51] LABS: Troponin-I High Sensitivity < 2.7 ng/L (<3.5-17.0)
[2022-10-03 11:12] LABS: Anion Gap 11 (12-20); Blood Urea Nitrogen 10 mg/dL (9-16); Calcium 9.4 mg/dL (8.4-10.2); Carbon Dioxide 28 mmol/L (22-29); Chloride 104 mmol/L (96-108); Creatinine Clr Calc Pharmacy 94.2; Estimated Glomerular Filt Rate > 60; Glucose Random 115 mg/dL (60-115); Potassium 3.9 mmol/L (3.3-5.1); Sodium 139 mmol/L (135-145)
== END 2022-10-03 11:33 | disposition home or self-care (01) ==
PROVIDERS: Emergency Provider Emergency Medicine; PCP Internal Medicine
DX: R07.9 Chest pain, unspecified (principal); F41.9 Anxiety disorder, unspecified; I10 Essential (primary) hypertension; E78.5 Hyperlipidemia, unspecified; F19.10 Other psychoactive substance abuse, uncomplicated; B19.20 Unspecified viral hepatitis C without hepatic coma; Z79.899 Other long term (current) drug therapy; Z79.02 Long term (current) use of antithrombotics/antiplatelets
CPT/HCPCS: 36415; 80048; 84484; 85025; 93005; 96374; 99283; 99284; J2060

== ENCOUNTER 2022-12-01 10:35 | Outpatient (AMB) | payer MEDICARE, MEDICAID, SELFPAY ==
--- NOTE | 2022-12-01 10:45 | MHC.PC.OV ---
Vital Signs 12/01/22 10:46 Height 5 ft 4 in Weight 179 lb BMI 30.7 BP 130/70 Blood Pressure Location Lt brachial Position Sitting Pulse 93 Pulse Source Pulse Oximeter Pulse Oximetry (%) 96 Oxygen Delivery Method Room Air Intake Visit Reasons: Med review Intake Note: Patient is here to follow up on medication review. District Court Reporter Required: No Police Pilot: Not Required per policy Accompanied by: Self / Same As Patient Allergies No Known Allergies Allergy (Mild, Verified 12/01/22 10:45) NOT APPLICABLE Tobacco use date assessed: 12/01/22 Dental Screening Dental Screen Date: 12/01/22 Did you have a dental visit in the last 12 months?: Yes Did you have a dental problem in the last 6 months where you did not have access to dental care?: No Was dental information given to patient?: Patient has dentist HPI Med review HPI Details Chronic anxiety PFSH Medical History Hepatitis C Hyperlipidemia Hypertension Substance abuse Surgical History History of section History of fusion of cervical spine History of surgery History of umbilical hernia repair Family History Father No problems noted. Mother Breast cancer Family/Other Breast cancer CAD (coronary artery disease) Dementia Mental health disorder Social History Housing: Apartment Alcohol intake: never Patient Tobacco Use Status: Current everyday Tobacco user Tobacco use type: Cigarette Cigarettes Per Day: 11 e-Cigarette/Vaping Use: Never Used Second Hand Smoke Exposure: No service: No Current occupational status: unemployed Cognitive needs: No Hearing needs: No Vision needs: No Questionnaire PHQ-9 Over the last 2 weeks, how often have you been bothered by any of the following problems? Depression Screening Interpretation: Negative Source: Developed by Drs. Jasen Ramirez, Yolanda Bourne, José Bourgeois and colleagues, with an educational saundra from [employer]. Thrive Questionnaire Date Thrive assessed: 09/12/22 Currently or been in a relationship where the following occur: no concerns reported LARRY-7 AMB Questionnaire LARRY-7 Date LARRY - 7 assessed: 09/12/22 Source: Developed by Drs. Jasen Ramirez, Yolanda Bourne, José Bourgeois and colleagues, with an educational saundra from [employer]. Review of Systems Const Denies chills, Denies headache(s) and Denies weight loss ENT Denies headache(s) Card Denies chest pain, Denies syncope, Denies irregular heart rhythm and Denies dyspnea Resp Denies chest congestion, Denies cough and Denies dyspnea GI Denies abdominal pain, Denies change in stool character, Denies nausea and Denies vomiting Musc Denies deformity and Denies joint swelling Neuro Denies syncope and Denies headache(s) Physical exam (Primary Care) BMI result Body Mass Index 30.7 Tobacco/Smoking Status: Tobacco use Status Tobacco use date assessed 09/12/22 09/12/22 11:46 Patient Tobacco Use Status Current everyday Tobacco 09/12/22 11:46 Tobacco use type Cigarette 09/12/22 11:46 e-Cigarette/Vaping Use Never Used 09/12/22 11:46 Depression Screening Interpretation: Negative Thrive Assessment: Date of Thrive Assessment Date Thrive assessed 09/12/22 09/12/22 11:46 Currently or been in a relationship where the following occur: no concerns reported Const General: cooperative, comfortable and no acute distress Resp Effort & Inspection: normal respiratory effort Auscultation: clear to auscultation bilaterally Percussion: percussion normal Cardio Jugular venous distension: no JVD Rate: regular rate Rhythm: regular rhythm GI Inspection: Yes normal to inspection Assessment and Plan Assessment & Plan (1) Panic attacks: Code(s): F41.0 - Panic disorder [episodic paroxysmal anxiety] Plan: stable; she lied to me stating she was not takingbuprenorphine; she still gets it every montn Medications: Refilled clonazepam 0.5 mg PO BID 60 tabs 5RF Coding Level of Care Code Est Pt Level 3 (96588) Diagnoses Panic attacks F41.0
[2022-12-01 10:46] VITALS: BP 130/70; PULSE 93; O2SAT 96; BMI 30.7
== END 2022-12-01 10:57 | disposition home or self-care (01) ==
PROVIDERS: PCP Internal Medicine; Visit Provider Internal Medicine
DX: F41.0 Panic disorder [episodic paroxysmal anxiety] (principal)
CPT/HCPCS: 99213

== ENCOUNTER 2023-04-30 14:29 | Outpatient (AMB) | payer MEDICARE, MEDICAID, SELFPAY ==
[2023-04-30 14:34] VITALS: BP 144/90; PULSE 103; O2SAT 93; BMI 30.4
--- NOTE | 2023-04-30 14:34 | A.OFFPC_ITS ---
Vital Signs 04/30/23 14:34 04/30/23 15:10 Height 5 ft 4 in Weight 177 lb 0.8 oz BMI 30.4 BP 144/90 H 136/80 Blood Pressure Location Lt brachial Lt brachial Position Sitting Sitting Pulse 103 H Pulse Source Pulse Oximeter Pulse Oximetry (%) 93 Oxygen Delivery Method Room Air Intake Visit Reasons: Annual Physical Feed Manager Required: No Allergies No Known Allergies Allergy (Mild, Verified 04/30/23 14:51) NOT APPLICABLE Medication List - Last Reconciled 04/30/23 by ILIANA Gonzalez albuterol sulfate 90 mcg/actuation (ProAir HFA) 2 puffs PO Q6H PRN amlodipine (Norvasc) 5 mg PO DAILY atorvastatin 20 mg PO DAILY blood pressure monitor To check blood pressure daily buprenorphine-naloxone 8-2 mg 2 tabs sublingual DAILY clonazepam 0.5 mg PO BID clonidine HCl 0.1 mg PO BID cyclobenzaprine 5 mg PO TID PRN 7 days Tobacco use date assessed: 04/30/23 Dental Screening Dental Screen Date: 04/30/23 Did you have a dental visit in the last 12 months?: No Did you have a dental problem in the last 6 months where you did not have access to dental care?: No HPI Annual Physical HPI0 Details Patient is a 62-year-old male who presents today for physical exam. Patient of Dr. Harrison. Medical history significant for substance abuse-on buprenorphine-naloxone, hypertension, hyperlipidemia, panic attacks, smoker- reports smoking 1.5 pack per day for the past 30 years-will refer for low-dose chest CT scan-interested in nicotine patch, history of brain aneurysm-was seen by Neurology in [place] - will call for a follow-up appointment. Today we discussed patient's need for cervical cancer screening, mammogram, colon cancer screening. Patient reports intermittent vertigo and would like to have cane for this, reports intermittent room spinning sensation. No shortness of breath or chest pain. [facility] Medical History (Updated 05/05/23 @ 12:16 by ILIANA Gonzalez) Contusion, chest wall Hyperlipidemia Hypertension Substance abuse Hepatitis C Surgical History History of surgery History of fusion of cervical spine History of umbilical hernia repair History of section Family History Father No problems noted. Mother Breast cancer Family/Other Breast cancer CAD (coronary artery disease) Dementia Mental health disorder Social History Housing: Apartment Alcohol intake: never Patient Tobacco Use Status: Current everyday Tobacco user Tobacco use type: Cigarette Cigarettes Per Day: 11 e-Cigarette/Vaping Use: Never Used Second Hand Smoke Exposure: No service: No Current occupational status: unemployed Cognitive needs: No Hearing needs: No Vision needs: No Questionnaire PHQ-9 Over the last 2 weeks, how often have you been bothered by any of the following problems? 1. Little interest or pleasure in doing things: not at all 2. Feeling down, depressed, or hopeless: not at all 3. Trouble falling or staying asleep, or sleeping too much: not at all 4. Feeling tired or having little energy: not at all 5. Poor appetite or overeating: not at all 6. Feeling bad about yourself - or that you are a failure or have let yourself or your family down: not at all 7. Trouble concentrating on things, such as reading the newspaper or watching television: not at all 8. Moving or speaking so slowly that other people could have noticed. Or the opposite - being so fidgety or restless that you have been moving around a lot more than usual: not at all 9. Thoughts that you would be better off or of hurting yourself in some way: not at all Total score: 0 Depression Screening Interpretation: Negative Depression Screening Done: Yes 12753 - PHQ-9 Billing: Yes Source: Developed by Drs. Jasen Ramirez, Yolanda Bourne, José Bourgeois and colleagues, with an educational saundra from [employer]. Thrive Questionnaire Date Thrive assessed: 09/12/22 I am a: Patient What is your living situation today?: I have a steady place to live Within the past 12 months, did the food you bought not last and you didn't have the money to get more?: Never true Within the past 12 months, did you worry whether your food would run out before you got money to buy more?: Never true Do you have trouble paying for medicines?: No Do you have trouble getting transportation to medical appointments?: No Do you have trouble paying your heating and electricity bill?: No Do you have trouble taking care of your child, family member or friend?: No Do you have trouble with day-to-day activities such as bathing, preparing meals, shopping, managing finances, etc.?: No Are you currently unemployed and looking for a job?: No Are you interested in more education?: No Currently or been in a relationship where the following occur: no concerns reported AUDIT C Alcohol Use Questionnaire (AUDIT-C) 1. How often do you have a drink containing alcohol?: 2-4 times a month 2. How many drinks containing alcohol do you have on a typical day when you are drinking?: 1 or 2 3. How often do you have six or more drinks on one occasion?: Never Total Score: 2 Score Reviewed/Action Taken: Yes LARRY-7 AMB Questionnaire LARRY-7 Date LARRY - 7 assessed: 04/30/23 Feeling nervous, anxious, or on edge: 1 = Several days Not being able to stop or control worryin = Several days Worrying too much about different things: 1 = Several days Trouble relaxin = Several days Being so restless that it is hard to sit still: 0 = Not at all Becoming easily annoyed or irritable: 0 = Not at all Feeling afraid as if something awful might happen: 0 = Not at all Total LARRY-7 score (0-4 normal; 5-9 mild; 10-14 moderate; 15-21 severe): 4 Source: Developed by Drs. Jasen Ramirez, Yolanda Bourne, José Bourgeois and colleagues, with an educational saundra from [employer]. LARRY-7 Assessment Billing LARRY-7 Assessment Tool: LARRY-7 Assessment 09323 Review of Systems Const Reports as per HPI, Denies body aches, Denies chills, Denies fever(s) and Denies headache(s) Eyes Denies change in vision ENT Denies dizziness, Denies otalgia, Denies headache(s), Denies nasal discharge, Denies sinus pain and Denies sore throat Card Denies chest pain, Denies edema, Denies lightheadedness and Denies dyspnea Resp Denies cough, Denies dyspnea and Denies wheezing GI Denies abdominal pain, Denies constipation, Denies diarrhea, Denies nausea and Denies vomiting Denies dysuria Musc Denies myalgias Skin/Breast Denies rash Neuro Denies dizziness and Denies headache(s) Aller/Immun Denies wheezing Physical exam (Primary Care) Vital Signs: Last Vital Signs Pulse 103 H 04/30/23 14:34 BP 136/80 04/30/23 15:10 Pulse Ox 93 04/30/23 14:34 Oxygen Delivery Method Room Air 04/30/23 14:34 BMI result Body Mass Index 30.4 Tobacco/Smoking Status: Tobacco use Status Tobacco use date assessed 04/30/23 04/30/23 14:35 Patient Tobacco Use Status Current everyday Tobacco 04/30/23 14:35 Tobacco use type Cigarette 04/30/23 14:35 e-Cigarette/Vaping Use Never Used 04/30/23 14:35 PHQ-9: PHQ-9 Score PHQ-9: Total score 0 04/30/23 14:56 Depression Screening Interpretation: Negative Thrive Assessment: Date of Thrive Assessment Date Thrive assessed 09/12/22 04/30/23 14:35 Currently or been in a relationship where the following occur: no concerns reported Const General: cooperative and no acute distress Orientation/consciousness: patient oriented x3 HENMT Head: Yes normocephalic and Yes atraumatic Ears: TM's normal bilaterally Face and sinus: Yes sinuses nontender Mouth: oropharynx normal and moist mucous membranes Throat: Yes posterior oropharynx normal Eyes General: appearance normal, both eyes and all related structures Pupils: Equal, round and reactive pupils present EOM: EOMs intact bilaterally Neck Neck: Yes normal visual inspection, Yes full ROM and Yes no lymphadenopathy Thyroid: Thyroid normal Resp Effort & Inspection: normal respiratory effort and able to speak in complete sentences Auscultation: clear to auscultation bilaterally, no crackles, no rales, no rhonchi and no wheezes Cardio Rate: regular rate Rhythm: regular rhythm Heart sounds: S1 normal heart sound present, S2 normal heart sound present and no murmurs GI Palpation (GI): Soft to palpation, not firm, nontender, no guarding, not rigid and no hepatosplenomegaly Auscultation: normal bowel sounds General: No CVA tenderness Back/Spine/Pelvis Back: No CVA tenderness Skin General skin exam: no rashes or lesions noted Neuro General: patient oriented x3 Cranial nerves: Yes Equal, round and reactive pupils present Gait exam (Neuro): Normal gait present Extrem General: Yes full ROM and No edema Assessment and Plan Assessment & Plan (1) Vertigo: Code(s): R42 - Dizziness and giddiness Plan: Start meclizine daily p.r.n.-educated about drowsiness Signs and symptoms reviewed when to notify provider or go to the emergency department (2) Smoker: Code(s): F17.200 - Nicotine dependence, unspecified, uncomplicated Plan: Referral for low-dose chest CT scan Nicotine patch sent (3) Cervical cancer screening: Code(s): Z12.4 - Encounter for screening for malignant neoplasm of cervix (4) Screening for colon cancer: Code(s): Z12.11 - Encounter for screening for malignant neoplasm of colon (5) Panic attacks: Code(s): F41.0 - Panic disorder [episodic paroxysmal anxiety] Plan: On clonazepam b.i.d.-educated about dependency and memory loss (6) Hyperlipidemia: Code(s): E78.5 - Hyperlipidemia, unspecified Plan: Continue atorvastatin Low-cholesterol diet (7) Hypertension: Code(s): I10 - Essential (primary) hypertension Plan: Goal BP equal or less than 140/90 Continue amlodipine Low-sodium diet (8) Physical exam: Comment: 40 min reviewing chart eval prt and documenting Code(s): Z00.00 - Encounter for general adult medical examination without abnormal findings (9) Substance abuse: Code(s): F19.10 - Other psychoactive substance abuse, uncomplicated Plan: On buprenorphine-naloxone prescribed by Dr. Nino (10) Screening for breast cancer: Code(s): Z12.39 - Encounter for other screening for malignant neoplasm of breast Orders: Orders Vitamin D 25-OH Total 04/30/23 E78.5 - Hyperlipidemia, unspecified TSH reflex Free T4 04/30/23 E78.5 - Hyperlipidemia, unspecified Lipid Panel 04/30/23 E78.5 - Hyperlipidemia, unspecified Comprehensive [place]. Panel Fast 04/30/23 E78.5 - Hyperlipidemia, unspecified MM tomosynthesis screening BI 04/30/23 Z12.31 - Encounter for screening mammogram for malignant neoplasm of breast Referrals SUSTAINABLE AGRICULTURE FACULTY Referral Z12.4 - Encounter for screening for malignant neoplasm of cervix Thoracic Surgery Referral F17.200 - Nicotine dependence, unspecified, uncomplicated Gastroenterology Referral Z12.11 - Encounter for screening for malignant neoplasm of colon Medications: New meclizine 25 mg PO DAILY PRN 14 tabs 0RF motion sickness R42 - Dizziness and giddiness cane As directed 1 ea 0RF R42 - Dizziness and giddiness nicotine 1 patch transdermal DAILY 28 ea 1RF F17.200 - Nicotine dependence, unspecified, uncomplicated Coding Level of Care Code Est Pt Prev Care 40-64y(46852) Diagnoses Vertigo R42 Smoker F17.200 Cervical cancer screening Z12.4 Screening for colon cancer Z12.11 Panic attacks F41.0 Hyperlipidemia E78.5 Hypertension I10 Physical exam Z00.00 Substance abuse F19.10 Screening for breast cancer Z12.39 Additional Codes LARRY-7 Assessment Billing - LARRY-7 Assessment Tool: LARRY-7 Assessment [id number] ([id number])
[2023-04-30 15:10] VITALS: BP 136/80
== END 2023-04-30 15:18 | disposition home or self-care (01) ==
PROVIDERS: PCP Nurse Practitioner Family; Visit Provider Nurse Practitioner Family
DX: Z00.00 Encounter for general adult medical examination without abnormal findings (principal); R42 Dizziness and giddiness; F17.210 Nicotine dependence, cigarettes, uncomplicated; F19.10 Other psychoactive substance abuse, uncomplicated; Z12.11 Encounter for screening for malignant neoplasm of colon; F41.0 Panic disorder [episodic paroxysmal anxiety]; Z12.39 Encounter for other screening for malignant neoplasm of breast; I10 Essential (primary) hypertension; E78.5 Hyperlipidemia, unspecified
CPT/HCPCS: 99396

== ENCOUNTER 2023-06-10 13:58 | Outpatient (AMB) | payer MEDICARE, SELFPAY ==
--- NOTE | 2023-06-10 13:48 | MHC.PC.OV ---
Intake Visit Reasons: Med review [phone] Intake Note: Patient is here to follow up on medication review. Embedded Software Engineer Required: No Sourcing Internship: Not Required per policy Accompanied by: Self / Same As Patient Allergies No Known Allergies Allergy (Mild, Verified 06/16/23 17:13) NOT APPLICABLE Tobacco use date assessed: 04/30/23 Dental Screening Dental Screen Date: 06/10/23 Did you have a dental visit in the last 12 months?: No Did you have a dental problem in the last 6 months where you did not have access to dental care?: No Was dental information given to patient?: No (dentures) HPI HPI Comments History of Present Illness Details 62-year-old female wishes to discuss her health via tele health. Patient sees another provider in this practice and would like to transfer her care to me. She has history of substance use and uses Klonopin daily. She would like for me to refill her Klonopin indefinitely. She gives history of anxiety disorder. [facility] Medical History (Updated 05/27/23 @ 17:25 by Nico Johnson MD) Contusion, chest wall Hyperlipidemia Hypertension Substance abuse Hepatitis C Surgical History History of surgery History of fusion of cervical spine History of umbilical hernia repair History of section Family History Father No problems noted. Mother Breast cancer Family/Other Breast cancer CAD (coronary artery disease) Dementia Mental health disorder Social History Housing: Apartment Alcohol intake: never Patient Tobacco Use Status: Current everyday Tobacco user Tobacco use type: Cigarette Cigarette Packs Per Day: 0.5 Cigarettes Per Day: 10 e-Cigarette/Vaping Use: Never Used Second Hand Smoke Exposure: Yes service: No Current occupational status: unemployed Cognitive needs: No Hearing needs: No Vision needs: No Questionnaire PHQ-9 Over the last 2 weeks, how often have you been bothered by any of the following problems? 1. Little interest or pleasure in doing things: not at all 2. Feeling down, depressed, or hopeless: several days 3. Trouble falling or staying asleep, or sleeping too much: not at all 4. Feeling tired or having little energy: not at all 5. Poor appetite or overeating: not at all 6. Feeling bad about yourself - or that you are a failure or have let yourself or your family down: not at all 7. Trouble concentrating on things, such as reading the newspaper or watching television: not at all 8. Moving or speaking so slowly that other people could have noticed. Or the opposite - being so fidgety or restless that you have been moving around a lot more than usual: not at all 9. Thoughts that you would be better off or of hurting yourself in some way: not at all Total score: 1 Source: Developed by Drs. Jasen Ramirez, Yolanda Bourne, José Bourgeois and colleagues, with an educational saundra from [employer]. Thrive Questionnaire Date Thrive assessed: 06/10/23 I am a: Patient What is your living situation today?: I have a steady place to live Within the past 12 months, did the food you bought not last and you didn't have the money to get more?: Never true Within the past 12 months, did you worry whether your food would run out before you got money to buy more?: Never true Do you have trouble paying for medicines?: No Do you have trouble getting transportation to medical appointments?: No Do you have trouble paying your heating and electricity bill?: No Do you have trouble taking care of your child, family member or friend?: No Do you have trouble with day-to-day activities such as bathing, preparing meals, shopping, managing finances, etc.?: No Are you currently unemployed and looking for a job?: No Are you interested in more education?: No THRIVE Score: 0 AUDIT C Alcohol Use Questionnaire (AUDIT-C) 1. How often do you have a drink containing alcohol?: Never Total Score: 0 LARRY-7 AMB Questionnaire LARRY-7 Date LARRY - 7 assessed: 06/10/23 Feeling nervous, anxious, or on edge: 3 = Nearly every day Not being able to stop or control worryin = More than half the days Worrying too much about different things: 2 = More than half the days Trouble relaxin = More than half the days Being so restless that it is hard to sit still: 0 = Not at all Becoming easily annoyed or irritable: 0 = Not at all Feeling afraid as if something awful might happen: 0 = Not at all Total LARRY-7 score (0-4 normal; 5-9 mild; 10-14 moderate; 15-21 severe): 9 Source: Developed by Drs. Jasen Ramirez, Yolanda Bourne, José Bourgeois and colleagues, with an educational saundra from [employer]. Physical exam (Primary Care) Tobacco/Smoking Status: Tobacco use Status Tobacco use date assessed 04/30/23 06/10/23 13:57 Patient Tobacco Use Status Current everyday Tobacco 06/10/23 13:57 Tobacco use type Cigarette 06/10/23 13:57 e-Cigarette/Vaping Use Never Used 06/10/23 13:57 PHQ-9: PHQ-9 Score PHQ-9: Total score 1 06/10/23 16:03 Thrive Assessment: Date of Thrive Assessment Date Thrive assessed 06/10/23 06/10/23 13:57 Telehealth Telehealth Location of provider rendering services: practice address Location of patient: address on file Patient Identification confirmed using: Name, : Yes Telehealth method: voice only Patient verbally consented to treatment: Yes Patient verbally consented to billing insurance company: Yes Patient informed of any privacy concerns related to visit: Yes Minutes spent on Phone/Video with Pt.: 20 Assessment and Plan Assessment & Plan (1) Substance abuse: Code(s): F19.10 - Other psychoactive substance abuse, uncomplicated Plan: I had some concerns before accepting her as a primary care patient. I plan to discuss this with the medical information officer and the physician whose care she is leaving. This note was dictated after conversation with the medical information officer and the physician. Apparently there was break of trust in regarding to the use of Suboxone. He felt the Klonopin dosage 0.5 mg twice a day was appropriate. I have agreed to take on the patient and will be continuing care for her. A follow-up tele visit has been scheduled for next week. Coding Level of Care Code Tele Est Pt Level 3 (65133) Diagnoses Substance abuse F19.10
== END 2023-06-10 17:06 | disposition home or self-care (01) ==
LOC: HO.HMGH 13:58
PROVIDERS: PCP Internal Medicine; Visit Provider Internal Medicine
DX: F19.10 Other psychoactive substance abuse, uncomplicated (principal)
CPT/HCPCS: 99442

== ENCOUNTER 2023-06-16 10:47 | Outpatient (AMB) | payer MEDICARE, SELFPAY ==
--- NOTE | 2023-06-16 10:47 | A.OFFPC_ITS ---
Intake Visit Reasons: med review Intake Note: Patient here today as a transfer of care from Dr Harrison. Patient is here today for medication review Lock Tender Chief Operator Required: No Auto Parts Manager: Not Required per policy Accompanied by: Self / Same As Patient Allergies No Known Allergies Allergy (Mild, Verified 06/16/23 17:13) NOT APPLICABLE Medication List - Last Reconciled 06/16/23 by Dilan Campos MD albuterol sulfate 90 mcg/actuation (ProAir HFA) 2 puffs PO Q6H PRN amlodipine (Norvasc) 5 mg PO DAILY atorvastatin 20 mg PO DAILY blood pressure monitor To check blood pressure daily buprenorphine-naloxone 8-2 mg 2 tabs sublingual DAILY clonazepam 0.5 mg PO BID clonidine HCl 0.1 mg PO BID Tobacco use date assessed: 04/30/23 Dental Screening Dental Screen Date: 06/16/23 Did you have a dental visit in the last 12 months?: No Did you have a dental problem in the last 6 months where you did not have access to dental care?: No Was dental information given to patient?: No HPI med review HPI Details 62-year-old female wishes to discuss her medical health via tele [facility]. I am taking over her care as she is transferring from another provider in this group. Patient has opioid use disorder and is on Suboxone. She gets it from [facility]. In addition patient has chronic anxiety for which she takes Klonopin 0.5 mg twice a day. She is also on clonidine that she is trying to taper. Patient would like a refill on her Klonopin today. [facility] Medical History (Updated 05/27/23 @ 17:25 by Nico Johnson MD) Contusion, chest wall Hyperlipidemia Hypertension Substance abuse Hepatitis C Surgical History History of surgery History of fusion of cervical spine History of umbilical hernia repair History of section Family History Father No problems noted. Mother Breast cancer Family/Other Breast cancer CAD (coronary artery disease) Dementia Mental health disorder Social History Housing: Apartment Alcohol intake: never Patient Tobacco Use Status: Current everyday Tobacco user Tobacco use type: Cigarette Cigarette Packs Per Day: 0.5 Cigarettes Per Day: 10 e-Cigarette/Vaping Use: Never Used Second Hand Smoke Exposure: Yes service: No Current occupational status: unemployed Cognitive needs: No Hearing needs: No Vision needs: No Questionnaire Thrive Questionnaire Date Thrive assessed: 06/10/23 LARRY-7 AMB Questionnaire LARRY-7 Date LARRY - 7 assessed: 06/10/23 Source: Developed by Drs. Jasen Ramirez, Yolanda Bourne, José Bourgeois and colleagues, with an educational saundra from [employer]. Review of Systems Const Denies daytime sleepiness and Denies malaise Physical exam (Primary Care) Tobacco/Smoking Status: Tobacco use Status Tobacco use date assessed 04/30/23 06/16/23 10:51 Patient Tobacco Use Status Current everyday Tobacco 06/16/23 10:51 Tobacco use type Cigarette 06/16/23 10:51 e-Cigarette/Vaping Use Never Used 06/16/23 10:51 Thrive Assessment: Date of Thrive Assessment Date Thrive assessed 06/10/23 06/16/23 10:51 Telehealth Telehealth Location of provider rendering services: practice address Location of patient: address on file Patient Identification confirmed using: Name, : Yes Telehealth method: voice only Patient verbally consented to treatment: Yes Patient verbally consented to billing insurance company: Yes Patient informed of any privacy concerns related to visit: Yes Minutes spent on Phone/Video with Pt.: 15 Assessment and Plan Assessment & Plan (1) Substance abuse: Code(s): F19.10 - Other psychoactive substance abuse, uncomplicated Plan Continue Suboxone as directed. Klonopin to be continued at 0.5 mg twice a day. Prescription was written for the same. Medications: Refilled clonazepam 0.5 mg PO BID 60 tabs 0RF Coding Level of Care Code Tele New Pt Level 3 (91993) Diagnoses Substance abuse F19.10
== END 2023-06-16 11:34 | disposition home or self-care (01) ==
LOC: HO.HMGH 10:47
PROVIDERS: PCP Internal Medicine; Visit Provider Internal Medicine
DX: F19.10 Other psychoactive substance abuse, uncomplicated (principal); Z79.891 Long term (current) use of opiate analgesic
CPT/HCPCS: 99213

== ENCOUNTER 2023-11-04 09:34 | Outpatient (AMB) | payer OTHER, MEDICAID, SELFPAY ==
--- NOTE | 2023-11-04 09:53 | MHC.PC.OV ---
Vital Signs 11/04/23 09:54 Height 5 ft 4 in Weight 183 lb BMI 31.4 BP 120/78 Blood Pressure Location Lt brachial Position Sitting Pulse 92 Pulse Source Pulse Oximeter Pulse Oximetry (%) 94 Oxygen Delivery Method Room Air Intake Visit Reasons: Medication f/u Intake Note: Patient is here to follow up on medication review and vertigo. Shrimp Pond Laborer Required: No Color Repairer: Not Required per policy Accompanied by: Self / Same As Patient Allergies No Known Allergies Allergy (Mild, Verified 11/04/23 11:02) NOT APPLICABLE Medication List - Last Reconciled 11/04/23 by Dilan Campos MD albuterol sulfate 90 mcg/actuation (ProAir HFA) 2 puffs PO Q6H PRN amlodipine (Norvasc) 5 mg PO DAILY atorvastatin 20 mg PO DAILY blood pressure monitor To check blood pressure daily buprenorphine-naloxone 8-2 mg 2 tabs sublingual DAILY clonazepam 0.5 mg PO BID varenicline 1 mg PO BID Tobacco use date assessed: 11/04/23 Dental Screening Dental Screen Date: 06/16/23 HPI Medication f/u HPI Details 63-year-old female presents to the office to discuss her chronic medical conditions. Her anxiety is controlled on the lorazepam. She is taking it as directed. Able to function and do her activities of daily living. Continues to smoke. Has stopped using the Chantix. Patient is not inclined to quit smoking at this time. Patient is using Suboxone for substance use disorder. She has discontinued the clonidine. She reports no changes in her medical health. Requests a refill on the amlodipine. Compliant with the medication. Not exercising or following any particular diet. [facility] Medical History (Updated 11/04/23 @ 11:03 by Dilan Campos MD) Tobacco use disorder Contusion, chest wall Hyperlipidemia Hypertension Substance abuse Hepatitis C Surgical History History of surgery History of fusion of cervical spine History of umbilical hernia repair History of section Family History Father No problems noted. Mother Breast cancer Family/Other Breast cancer CAD (coronary artery disease) Dementia Mental health disorder Social History (Updated 11/04/23 @ 09:58 by SOPHIE Nicholas Housing: Apartment Alcohol intake: current Alcohol intake frequency: a few times a month Patient Tobacco Use Status: Current everyday Tobacco user Tobacco use type: Cigarette Cigarette Packs Per Day: 0.5 Cigarettes Per Day: 2 e-Cigarette/Vaping Use: Never Used Second Hand Smoke Exposure: Yes service: No Current occupational status: unemployed Cognitive needs: No Hearing needs: No Vision needs: No Questionnaire Thrive Questionnaire Date Thrive assessed: 06/10/23 LARRY-7 AMB Questionnaire LARRY-7 Date LARRY - 7 assessed: 06/10/23 Source: Developed by Drs. Jasen Ramirez, Yolanda Bourne, José Bourgeois and colleagues, with an educational saundra from [employer]. Physical exam (Primary Care) Vital Signs: Last Vital Signs Pulse 92 11/04/23 09:54 BP 120/78 11/04/23 09:54 Pulse Ox 94 11/04/23 09:54 Oxygen Delivery Method Room Air 11/04/23 09:54 BMI result Body Mass Index 31.4 Tobacco/Smoking Status: Tobacco use Status Tobacco use date assessed 11/04/23 11/04/23 09:56 Patient Tobacco Use Status Current everyday Tobacco 11/04/23 09:58 Tobacco use type Cigarette 11/04/23 09:58 e-Cigarette/Vaping Use Never Used 11/04/23 09:58 Thrive Assessment: Date of Thrive Assessment Date Thrive assessed 06/10/23 11/04/23 09:56 Const General: cooperative and healthy appearing Nutritional Appearance: well nourished Orientation/consciousness: patient oriented x3 Limitations: no limitations HENIN Head: Yes normal to inspection Eyes General: appearance normal, both eyes and all related structures Neck Neck: Yes normal visual inspection Chest Chest palpation & inspection: normal palpation of entire chest wall Resp Effort & Inspection: normal respiratory effort Neuro General: patient oriented x3 Assessment and Plan Assessment & Plan (1) Vertigo: Code(s): R42 - Dizziness and giddiness Plan: Meclizine added to the regimen. Use as needed. (2) Panic attacks: Code(s): F41.0 - Panic disorder [episodic paroxysmal anxiety] Plan: Symptoms have been controlled with clonazepam. (3) Hypertension: Code(s): I10 - Essential (primary) hypertension Plan: BP well controlled on Amlodipine. Continue medication. BW has been ordered. Will call with the result (4) Substance abuse: Code(s): F19.10 - Other psychoactive substance abuse, uncomplicated Plan: Continue Suboxone. Clonidine has been discontinued. (5) Tobacco use disorder: Code(s): F17.200 - Nicotine dependence, unspecified, uncomplicated Plan: Counselling to quit smoking done. Orders: Orders Basic Metabolic Panel Today F19.10 - Other psychoactive substance abuse, uncomplicated, F41.0 - Panic disorder [episodic paroxysmal anxiety], I10 - Essential (primary) hypertension Complete Blood Count no Diff Today F19.10 - Other psychoactive substance abuse, uncomplicated, F41.0 - Panic disorder [episodic paroxysmal anxiety], I10 - Essential (primary) hypertension Liver Panel Today F19.10 - Other psychoactive substance abuse, uncomplicated, F41.0 - Panic disorder [episodic paroxysmal anxiety], I10 - Essential (primary) hypertension Lipid Panel Today F19.10 - Other psychoactive substance abuse, uncomplicated, F41.0 - Panic disorder [episodic paroxysmal anxiety], I10 - Essential (primary) hypertension Thyroid Stimulating Hormone Today F19.10 - Other psychoactive substance abuse, uncomplicated, F41.0 - Panic disorder [episodic paroxysmal anxiety], I10 - Essential (primary) hypertension UA and rflx microscopic Today F19.10 - Other psychoactive substance abuse, uncomplicated, F41.0 - Panic disorder [episodic paroxysmal anxiety], I10 - Essential (primary) hypertension Referrals Cologuard Test Z12.11 - Encounter for screening for malignant neoplasm of colon Medications: Refilled amlodipine (Norvasc) 5 mg PO DAILY 90 tabs 8RF Coding Level of Care Code Est Pt Level 4 (55310) Complex EM visit Add On G2211 Diagnoses Vertigo R42 Panic attacks F41.0 Hypertension I10 Substance abuse F19.10 Tobacco use disorder F17.200
[2023-11-04 09:54] VITALS: BP 120/78; PULSE 92; O2SAT 94; BMI 31.4
== END 2023-11-04 10:33 | disposition home or self-care (01) ==
PROVIDERS: PCP Internal Medicine; Visit Provider Internal Medicine
DX: R42 Dizziness and giddiness (principal); F41.0 Panic disorder [episodic paroxysmal anxiety]; I10 Essential (primary) hypertension; F19.10 Other psychoactive substance abuse, uncomplicated; F17.200 Nicotine dependence, unspecified, uncomplicated
CPT/HCPCS: 99214; G2211

== ENCOUNTER 2024-04-04 10:12 | Outpatient (AMB) | payer OTHER, MEDICAID, SELFPAY ==
--- NOTE | 2024-04-04 10:16 | A.OFFPC_ITS ---
Vital Signs 04/04/24 10:18 Height 5 ft 4 in Weight 189 lb 4 oz BMI 32.5 BP 130/88 Blood Pressure Location Lt brachial Position Sitting Pulse 112 H Pulse Source Pulse Oximeter Pulse Oximetry (%) 90 L Oxygen Delivery Method Room Air Intake Visit Reasons: 3 month f/u Intake Note: Patient is here to follow up on HTN, HLD, Vertigo. Fiberglass Fabricator Required: No Handbag Operator: Present Accompanied by: Son Allergies No Known Allergies Allergy (Mild, Verified 04/04/24 13:11) NOT APPLICABLE Medication List - Last Reconciled 04/04/24 by Dilan Campos MD albuterol sulfate 90 mcg/actuation 2 puffs PO Q6H PRN amlodipine (Norvasc) 5 mg PO DAILY atorvastatin 20 mg PO DAILY blood pressure monitor To check blood pressure daily buprenorphine-naloxone 8-2 mg 2 tabs sublingual DAILY clonazepam 0.5 mg PO BID meclizine 12.5 mg PO TID PRN varenicline 1 mg PO BID Tobacco use date assessed: 04/04/24 Dental Screening Dental Screen Date: 06/16/23 HPI 3 month f/u HPI Details 63-year-old female presents to the offic e to discuss her chronic medical conditions. Patient continues to reports symptoms of moderate depression. She does not like to leave the house. She has started seeing the psychiatrist who has put her on 2 new medications. She does not recall the name. Has not gotten any blood work done. Neither did she go for the mammogram appointment that was scheduled for her. Patient also would like to get a Cologuard test instead of colonoscopy. [facility] Medical History (Updated 04/04/24 @ 13:37 by Dilan Campos MD) Generalized anxiety disorder Tobacco use disorder Contusion, chest wall Hyperlipidemia Hypertension Substance abuse Hepatitis C Surgical History History of surgery History of fusion of cervical spine History of umbilical hernia repair History of section Family History Father No problems noted. Mother Breast cancer Family/Other Breast cancer CAD (coronary artery disease) Dementia Mental health disorder Social History Housing: Apartment Alcohol intake: current Alcohol intake frequency: a few times a month Patient Tobacco Use Status: Former Tobacco user Tobacco use type: Cigarette Cigarette Packs Per Day: 0.5 Cigarettes Per Day: 2 e-Cigarette/Vaping Use: Never Used Second Hand Smoke Exposure: Yes service: No Current occupational status: unemployed Cognitive needs: No Hearing needs: No Vision needs: No Questionnaire Thrive Questionnaire Date Thrive assessed: 06/10/23 LARRY-7 AMB Questionnaire LARRY-7 Date LARRY - 7 assessed: 06/10/23 Source: Developed by Drs. Jasen Ramirez, Yolanda Bourne, José Bourgeois and colleagues, with an educational saundra from [employer]. Physical exam (Primary Care) Vital Signs: Last Vital Signs Pulse 112 H 04/04/24 10:18 BP 130/88 04/04/24 10:18 Pulse Ox 90 L 04/04/24 10:18 Oxygen Delivery Method Room Air 04/04/24 10:18 BMI result Body Mass Index 32.5 Tobacco/Smoking Status: Tobacco use Status Tobacco use date assessed 04/04/24 04/04/24 10:23 Patient Tobacco Use Status Former Tobacco user 04/04/24 10:28 Tobacco use type Cigarette 04/04/24 10:25 e-Cigarette/Vaping Use Never Used 04/04/24 10:25 Thrive Assessment: Date of Thrive Assessment Date Thrive assessed 06/10/23 04/04/24 10:23 Const General: cooperative and healthy appearing Nutritional Appearance: well nourished Orientation/consciousness: patient oriented x3 Limitations: no limitations HENMT Head: Yes normal to inspection Eyes General: appearance normal, both eyes and all related structures Neck Neck: Yes normal visual inspection Chest Chest palpation & inspection: normal palpation of entire chest wall Resp Effort & Inspection: normal respiratory effort Neuro General: patient oriented x3 Office Procedures Flu Questionnaire Does the patient have a severe egg allergy?: No Does the patient have severe life threatening allergies?: No Does the patient have a fever or illness today?: No Has the patient ever had Guillain-Point Pleasant Syndrome?: No Has the patient ever had any past reaction to a flu shot?: No Immunizations Fluarix Triv [id number] (PF) 45 mcg (15 mcg x 3)/0.5 mL IM syringe Performing Provider: Dilan Campos MD Performing Location: [facility] Administered by: Dari Hyatt RN on 04/04/24 10:45 Dose Route Admin Location Dispensed Lot Number Expiration Date [place] Medical Referral Coordinator 0.5 mL IM Right Deltoid 0.5 mL [id number] 11/21/24 [id number] VIS Given Date VIS Provided VIS Publication Date 04/04/24 Single Vaccine 20 Eligibility Eligibility Date Funding Source Not [facility] Eligible 04/04/24 Private Coding Level of Care Code Est Pt Level 4 (13799) Complex EM visit Add On G2211 Diagnoses Substance abuse F19.10 Hypertension I10 Hyperlipidemia E78.5 Generalized anxiety disorder F41.1 Assessment & Plan Assessment & Plan (1) Substance abuse: Code(s): F19.10 - Other psychoactive substance abuse, uncomplicated Category: Medical Plan: On Suboxone.. Patient goes to [facility] for treatment. (2) Hypertension: Code(s): I10 - Essential (primary) hypertension Category: Medical Plan: Blood pressure is in range. Continue medications at same dosage. (3) Hyperlipidemia: Code(s): E78.5 - Hyperlipidemia, unspecified Category: Medical Plan: Blood work has been ordered. Encourage patient to get it done. (4) Generalized anxiety disorder: Code(s): F41.1 - Generalized anxiety disorder Category: Medical Plan: Patient has moderate amount of general anxiety. She is seeing a psychiatrist who started her on 2 new medications. Patient could not provide me the list. I encouraged her to get the mammogram done, that was ordered. Patient has agreed to get the Cologuard testing done. Orders: Orders Influenza [id number] Immunization Today Z23 - Encounter for immunization
[2024-04-04 10:18] VITALS: BP 130/88; PULSE 112; O2SAT 90; BMI 32.5
== END 2024-04-04 11:13 | disposition home or self-care (01) ==
PROVIDERS: PCP Internal Medicine; Visit Provider Internal Medicine
DX: F19.10 Other psychoactive substance abuse, uncomplicated (principal); I10 Essential (primary) hypertension; E78.5 Hyperlipidemia, unspecified; F41.1 Generalized anxiety disorder; Z23 Encounter for immunization

== ENCOUNTER 2024-04-04 10:12 | Outpatient (REF) | payer OTHER, MEDICAID, SELFPAY ==
[2024-04-04 12:09] LABS: Hemoglobin 15.5 g/dl (12.0-16.0); Mean Corpuscular HGB Conc 34.4 g/dl (31.0-35.0); Mean Corpuscular Hemoglobin 32.6 pg (27.0-33.0); Mean Corpuscular Volume 94.7 fL (80.0-98.0); Mean Platelet Volume 9.2 fL (9.4-12.3); Platelet Count 330 X10*3/uL (160-400); Red Blood Count 4.75 X10*6/uL (4.20-5.50); Red Cell Distribution Width 11.9 % (11.0-16.0); White Blood Count 9.6 X10*3/uL (4.8-10.8)
[2024-04-04 12:23] LABS: Appearance Urine Turbid; Color Urine Dark Yellow; Glucose Urine UA Negative (Negative); Leukocyte Esterase Urine Trace (Negative); Nitrite Urine Negative (Negative); PH 5.5 (5.0-9.0); Specific Gravity - Urine >= 1.030 (1.005-1.025); UMIC TRIGGER UA YES; Urine Blood Negative (Negative); Urine Ketones 40 mg/dL (Negative); Urine Protein >=1000 (4+) mg/dL (Neg-Trace)
[2024-04-04 12:42] LABS: Alanine Aminotransferase 46 U/L (0-31); Alkaline Phosphatase 58 U/L (39-117); Anion Gap 16 (12-20); Aspartate Amino Transferase 49 U/L (5-31); Bilirubin Direct 0.2 mg/dL (0.0-0.5); Bilirubin Total 0.6 mg/dL (0.0-1.0); Blood Urea Nitrogen 9 mg/dL (9-16); Calcium 10.1 mg/dL (8.4-10.2); Carbon Dioxide 25 mmol/L (22-29); Chloride 100 mmol/L (96-108); Cholesterol 289 mg/dL (<200); Estimated Glomerular Filt Rate > 60; Glucose Random 118 mg/dL (60-115); HDL Cholesterol 36 mg/dL (>40); LDL Cholesterol Calculated 194 mg/dL (<100); Potassium 3.4 mmol/L (3.3-5.1); Sodium 138 mmol/L (135-145); Triglycerides 297 mg/dL (<150)
[2024-04-04 12:44] LABS: Bacteria Urine 4+ (None Seen); RBC Urine 0-2 /HPF (0-2); Squamous Epithelial Cell Urine >20 /HPF (0-2)
[2024-04-04 13:00] LABS: Thyroid Stimulating Hormone 2.41 uIU/mL (0.32-4.0)
== END 2024-04-04 10:13 | disposition home or self-care (01) ==
LOC: HO.LAB 10:12
PROVIDERS: PCP Internal Medicine; Visit Provider Internal Medicine
DX: F11.20 Opioid dependence, uncomplicated (principal); I10 Essential (primary) hypertension; E78.5 Hyperlipidemia, unspecified; F41.1 Generalized anxiety disorder; F41.0 Panic disorder [episodic paroxysmal anxiety]; Z23 Encounter for immunization
CPT/HCPCS: 36415; 80048; 80061; 80076; 81001; 84443; 85027; 90471; 90656

== ENCOUNTER 2024-04-19 08:28 | Outpatient (REF) | payer MEDICARE, SELFPAY ==
[2024-04-19 09:41] LABS: Erythrocyte Sedimentation Rate 14 MM/HR (0-20)
[2024-04-19 10:35] LABS: Appearance Urine Clear; Color Urine Yellow; Glucose Urine UA Negative (Negative); Leukocyte Esterase Urine Negative (Negative); Nitrite Urine Negative (Negative); Specific Gravity - Urine 1.015 (1.005-1.025); Urine Blood Negative (Negative); Urine Ketones Negative (Negative); Urine Protein Trace mg/dL (Neg-Trace)
== END 2024-04-19 08:29 | disposition home or self-care (01) ==
LOC: HO.LAB 08:28
PROVIDERS: PCP Internal Medicine; Visit Provider Internal Medicine
DX: R80.9 Proteinuria, unspecified (principal)
CPT/HCPCS: 36415; 81003; 85652